=== PATIENT | female | born 1950 | race Caucasian/White ===

== ENCOUNTER 2017-04-20 16:45 | Emergency (ER) | payer MEDICARE, OTHER ==
--- NOTE | 2017-04-20 17:11 | EDM.PDOC ---
ED HPI GENERAL MEDICAL PROBLEM - General Chief Complaint: Abdominal Pain Stated Complaint: ABDOMINAL PAIN Time Seen by Provider: 04/20/17 16:53 Source of Information: Reports: Patient History Limitations: Reports: No Limitations - History of Present Illness INITIAL COMMENTS - FREE TEXT/NARRATIVE: patient is a 67-year-old female who presents to the emergency department this afternoon with complaint of lower abdominal pain. Patient states it began yesterday and had 3 small bowel movements today. Pain described as crampy and intermittent. Denies fever, nausea, vomiting, diarrhea, blood in stool, flank pain, dysuria, odorous urine, trauma, or family members with similar symptoms. Onset: Gradual Onset Date: 04/19/17 Duration: Day(s): Location: Reports: Abdomen Quality: Reports: Ache Severity: Mild Improves with: Reports: None Worsens with: Reports: None Context: Denies: Trauma Associated Symptoms: Reports: No Other Symptoms - Related Data Allergies Allergy/AdvReac Type Severity Reaction Status Date / Time No Known Allergies Allergy Verified 01/12/17 14:08 ED ROS GENERAL - Review of Systems Review Of Systems: ROS reveals no pertinent complaints other than HPI. Constitutional: Reports: No Symptoms HEENT: Reports: No Symptoms Respiratory: Reports: No Symptoms Cardiovascular: Reports: No Symptoms Endocrine: Reports: No Symptoms GI/Abdominal: Reports: Abdominal Pain : Reports: No Symptoms Musculoskeletal: Reports: No Symptoms Skin: Reports: No Symptoms Neurological: Reports: No Symptoms Psychiatric: Reports: No Symptoms Hematologic/Lymphatic: Reports: No Symptoms Immunologic: Reports: No Symptoms ED EXAM, GI/ABD - Physical Exam Exam: See Below Exam Limited By: No Limitations General Appearance: Alert, WD/WN, No Apparent Distress Nose: Normal Inspection, Normal Mucosa, No Blood Throat/Mouth: Normal Inspection, Normal Oropharynx, No Airway Compromise Head: Atraumatic, Normocephalic Neck: Normal Inspection, Supple Respiratory/Chest: No Respiratory Distress, Lungs Clear, Normal Breath Sounds, No Accessory Muscle Use, Chest Non-Tender Cardiovascular: Regular Rate, Rhythm, No Murmur GI/Abdominal Exam: Normal Bowel Sounds, Soft, No Organomegaly, No Distention, No Abnormal Bruit, No Mass, Tender (Suprapubic) Back Exam: Normal Inspection. No: CVA Tenderness (L), CVA Tenderness (R) Extremities: Normal Inspection, No Pedal Edema Neurological: Alert, Oriented, Normal Cognition Psychiatric: Normal Affect, Normal Mood Skin Exam: Warm, Dry, Intact, Normal Color Lymphatic: No Adenopathy Course - Orders/Labs/Meds Orders: Active Orders 24 hr Category Date Time Status CBC WITH AUTO DIFF [HEME] Stat Lab 04/20/17 17:01 Ordered COMPREHENSIVE METABOLIC PN,CMP [CHEM] Stat Lab 04/20/17 17:01 Ordered UA W/MICROSCOPIC [URIN] Stat Lab 04/20/17 17:01 Uncollected - Re-Assessments/Exams Free Text/Narrative Re-Assessment/Exam: 04/20/17 18:19 Patient afebrile, nontoxic appearing, vital signs stable. Abdominal cramping is intermittent and relieves with passing of gas. Patient will follow-up at clinic in 1-2 days. Return to emergency room sooner if symptoms continue or worsen. Departure - Departure Time of Disposition: 18:25 Disposition: Home, Self-Care 01 Condition: Good Clinical Impression: Abdominal pain Qualifiers: Abdominal location: unspecified location Qualified Code(s): R10.9 - Unspecified abdominal pain - Discharge Information Instructions: Abdominal Pain, Adult, [id number] Referrals: Shyla Serrano MD [Primary Care Provider] - Forms: ED Department Discharge Additional Instructions: Follow-up in clinic in next 1-2 days. Return to the emergency department sooner if symptoms continue or worsen - My Orders Last 24 Hours: My Active Orders 04/20/17 17:01 CBC WITH AUTO DIFF [HEME] Stat COMPREHENSIVE METABOLIC PN,CMP [CHEM] Stat UA W/MICROSCOPIC [URIN] Stat - Assessment/Plan Last 24 Hours: My Active Orders 04/20/17 17:01 CBC WITH AUTO DIFF [HEME] Stat COMPREHENSIVE METABOLIC PN,CMP [CHEM] Stat UA W/MICROSCOPIC [URIN] Stat Assessment:: Abdominal pain Plan: Follow-up at the clinic in 1-2 days. Return to emergency room sooner if symptoms continue or worsen.
[2017-04-20 17:54] LABS: CHLORIDE,CL 103 mmol/L (98-115); SODIUM,NA 139 mmol/L (136-145)
== END 2017-04-20 18:30 | disposition home or self-care (01) ==
LOC: KA.ED 16:45
DX: R10.30 Lower abdominal pain, unspecified (principal)
CPT/HCPCS: 36415; 80053; 81001; 85025; 99284

== ENCOUNTER 2019-06-07 10:25 | Day surgery (SDC) | payer MEDICARE, OTHER ==
[2019-06-07] MEDS ORDERED: Sodium Chloride 0.9% 10 ML Syringe FLUSH PRN (10:30)
[2019-06-07] MEDS ORDERED: Propofol 200 MG/20 ML SDV ONE ×2 (10:30→12:59)
[2019-06-07] MEDS: Lactated Ringers 1,000 ML IV SCH (12:25)
--- NOTE | 2019-06-07 12:30 | PCM.PN ---
- General Info Date of Service: 06/07/19 - Review of Systems Systems Review Comment:: 69-year-old female referred for EGD and colonoscopy. She has been having increasing symptoms of dysphasia over the last several months. He occasionally has some heartburn but does not take medication routinely for this. She has never had a previous colonoscopy and screening colonoscopy is planned as well. I discussed the proposed upper and lower endoscopy with the patient. Indications and risks are reviewed. She agrees to proceed. Recent history and physical is reviewed and no significant changes are noted. - Patient Data Vitals - Most Recent: Last Vital Signs Temp 97.1 F 06/07/19 10:39 Pulse 72 06/07/19 10:39 Resp 16 06/07/19 10:39 BP 153/88 H 06/07/19 10:39 Pulse Ox 97 06/07/19 10:39 Weight - Most Recent: 88.904 kg Med Orders - Current: Current Medications Lactated Ringer's (Ringers, Lactated) 1,000 mls @ 30 mls/hr IV ASDIRECTED ELGIN Sodium Chloride (Saline Flush) 10 ml FLUSH Q8HR PRN PRN Reason: keep vein open Discontinued Medications Propofol (Diprivan 20 Ml) Confirm Administered Dose 400 mg .ROUTE .STK-MED ONE Stop: 06/07/19 10:31 Sepsis Event Note - Focused Exam Vital Signs: Vital Signs Temp Pulse Resp BP Pulse Ox 06/07/19 10:39 97.1 F 72 16 153/88 H 97 Date Exam was Performed: 06/07/19 Time Exam was Performed: 12:28 - Problem List Review Problem List Initiated/Reviewed/Updated: Yes - My Orders Last 24 Hours: My Active Orders 06/06/19 11:51 Resuscitation Status Routine 06/07/19 10:30 Peripheral IV Care [RC] . DIRECTED Verify Patient Consent Obtain [RC] ASDIRECTED Vital Signs [RC] PER UNIT ROUTINE Lactated Ringers [Ringers, Lactated] 1,000 ml IV ASDIRECTED Sodium Chloride 0.9% [Saline Flush] 10 ml FLUSH Q8HR PRN Peripheral IV Insertion Adult [OM.PC] Routine 06/07/19 Breakfast Nothing Per Oral Diet [DIET] - Assessment Assessment:: Dysphasia Colon cancer screening - Plan Plan:: EGD and colonoscopy
[2019-06-07] MEDS ORDERED: Lidocaine 2% 100 MG/5 ML Syringe IVPUSH ONE (12:33)
[2019-06-07] MEDS ORDERED: Propofol 200 MG/20 ML SDV IV ONE (12:33)
--- NOTE | 2019-06-07 13:27 | PCM.OPNOTE ---
- General Post-Op/Procedure Note Date of Surgery/Procedure: 06/07/19 Operative Procedure(s): EGD with Biopsy and Balloon Esophageal Dilation. Colonoscopy with Polypectomy Findings: Small hiatal hernia with moderate reflux esophagitis and moderate stricture at GE junction. Mild hyperemia of the antral mucosa near the pylorus. Duodenum appears normal. 2 colon polyps and moderate sigmoid diverticulosis. Pre Op Diagnosis: Dysphasia. Colon cancer screening Post-Op Diagnosis: Hiatal hernia with reflux esophagitis and esophageal stricture. Gastritis. Colon polyps. Sigmoid diverticulosis Anesthesia Technique: [facility] [place] Primary Surgeon: Gordo Selby Pathology: Biopsies of gastric antrum Colon polyps 2 EBL in mLs: 3 Complications: None Condition: Good
--- NOTE | 2019-06-07 15:54 | OR ---
DATE OF SURGERY: 06/07/2019 SURGEON: Gordo Selby MD PREOPERATIVE DIAGNOSIS: Dysphagia and colon cancer screening. POSTOPERATIVE DIAGNOSIS: Hiatal hernia with reflux esophagitis and esophageal stricture, gastritis, colon polyps, and sigmoid diverticulosis. OPERATION PERFORMED: Esophagogastroduodenoscopy with biopsy and balloon esophageal dilation, and colonoscopy with polypectomy. INDICATIONS FOR SURGERY: This 69-year-old female has been having increasing symptoms of dysphagia over the past several months. She also has never had a colonoscopy. She is referred for diagnostic upper endoscopy and screening colonoscopy. FINDINGS: On upper endoscopy, the patient has a small hiatal hernia, but there is visible inflammation at the GE junction. There is also a [id number] benign-appearing stenosis limited to the GE junction. No visible indication of intrinsic or extrinsic mass is noted. The remainder of the esophagus appeared normal. There is mild amount of hyperemia noted in the gastric mucosa near the pylorus. No ulcers or other lesions are seen. The remainder of the stomach appears normal. The duodenum also appears normal. On colonoscopy, two polyps were noted. There was a sessile, 8 mm polyp in the proximal transverse colon. There was a semipedunculated, 7 mm polyp in the sigmoid colon 25 cm from the anal verge. There was also moderate degree of diverticulosis in the sigmoid colon, which does not appear to be acutely inflamed or otherwise complicated. The remainder of the colon appears normal. DESCRIPTION OF PROCEDURE: The patient was taken to the operating room. She was given intravenous sedation and with her in the left lateral decubitus position, the Olympus gastroscope was advanced through a mouth guard into the oral cavity. Under direct visualization, the scope was advanced through the oropharynx down into the esophagus and then down through the esophagus, stomach, and into the duodenum where examination to the third portion was performed. After examining the duodenum, the scope was withdrawn back into the stomach where full examination including retroflexed examination of the fundus was carried out. Random biopsies were taken of the area of visible inflammation in the antrum. The GE junction was carefully examined. There did appear to be a moderate narrowing at the GE junction and with the patient's symptoms, it was felt she would benefit from dilation of this stenosis. The 15-16.5-18 dilating balloon was then advanced through the gastroscope and then using successive dilation, the stenosis of the GE junction was dilated to 54-Turkish. Examination after dilation showed no sign of serious injury to the esophagus or other complication. The remainder of the esophagus was then examined as the scope was withdrawn. Attention was turned to colonoscopy. Digital rectal exam shows no rectal masses. The Olympus colonoscope was inserted into the rectum. Retroflexed examination of the rectal canal was performed. The scope was then carefully advanced under direct visualization through the entire length of the colon until the cecum was reached. Cecal acquisition was confirmed by noting the normal internal cecal anatomy including the appendiceal orifice and ileocecal valve. After carefully examining the cecum, the scope was slowly withdrawn, sequentially re-examining the colonic segments. The above-described polyps were identified during this withdrawal of the scope, and these were each removed with the cautery snare and retrieved as they were encountered. No sign of any complication was noted with polypectomy sites. After the exam had been completed, the scope was removed and the patient was taken from the operating room in satisfactory condition. ESTIMATED BLOOD LOSS: 3 mL. COMPLICATIONS: None. PROGNOSIS: Good. /[id number]/MODL
== END 2019-06-07 14:57 | disposition home or self-care (01) ==
LOC: KA.SDS 10:25
PROVIDERS: ATTEND Surgery
DX: Z12.11 Encounter for screening for malignant neoplasm of colon (principal); D12.3 Benign neoplasm of transverse colon; D12.5 Benign neoplasm of sigmoid colon; K29.50 Unspecified chronic gastritis without bleeding; K44.9 Diaphragmatic hernia without obstruction or gangrene; K21.0 Gastro-esophageal reflux disease with esophagitis; K22.2 Esophageal obstruction; E78.5 Hyperlipidemia, unspecified; E03.9 Hypothyroidism, unspecified; Z88.1 Allergy status to other antibiotic agents; Z88.2 Allergy status to sulfonamides; Z79.82 Long term (current) use of aspirin; Z79.899 Other long term (current) drug therapy; Z87.891 Personal history of nicotine dependence
CPT/HCPCS: J2001; J2704; J7120

== ENCOUNTER 2020-02-01 06:18 | Emergency (ER) | payer MEDICARE, OTHER ==
[2020-02-01] MEDS ORDERED: Ketorolac 30 MG/ML SDV IVPUSH ONE (06:34)
[2020-02-01] MEDS ORDERED: Sodium Chloride 0.9% 1,000 ML IV ONE (06:35)
[2020-02-01] MEDS ORDERED: Morphine 4 MG/ML VIAL IVPUSH ONE ×2 (06:35→07:30)
[2020-02-01] MEDS ORDERED: Ondansetron 4 MG/2 ML SDV IVPUSH ONE (06:35)
[2020-02-01] MEDS ORDERED: Sodium Chloride 0.9% 1,000 ML ONE (06:37)
[2020-02-01] MEDS ORDERED: Ondansetron 4 MG/2 ML SDV ONE (06:37)
[2020-02-01] MEDS ORDERED: Ketorolac 30 MG/ML SDV ONE (06:37)
[2020-02-01] MEDS ORDERED: Sodium Chloride 0.9% 10 ML Syringe FLUSH PRN (07:00)
[2020-02-01 07:07] LABS: ANION GAP 17.4 mmol/L (5-15); CHLORIDE,CL 108 mmol/L (98-115); SODIUM,NA 142 mmol/L (136-145)
--- NOTE | 2020-02-01 07:14 | EDM.PDOC ---
ED HPI GENERAL MEDICAL PROBLEM - General Chief Complaint: General Stated Complaint: Left flank pain Time Seen by Provider: 02/01/20 06:53 Source of Information: Reports: Patient History Limitations: Reports: No Limitations - History of Present Illness INITIAL COMMENTS - FREE TEXT/NARRATIVE: Presents emergency room for left flank pain radiates down to her left groin which started approximately 1 and half hours ago prior to arrival. Patient notes getting up to go to the bathroom to void. After she finished voiding she noticed having acute onset left flank pain. She was unable go back to sleep. The pain is 10 out of 10, sharp, radiating, continuous pain. Associated with nausea, no vomiting. Denies any true abdominal pain. History of renal calculi 35 years ago which she needed surgically taken care of. Left Flank Pain Score (Numeric/FACES): 10 - Related Data Allergies Allergy/AdvReac Type Severity Reaction Status Date / Time Sulfa (Sulfonamide Allergy Nausea and Verified 02/01/20 06:19 Antibiotics) Vomiting sulfamethoxazole Allergy Cannot Verified 02/01/20 06:19 [From Bactrim] Remember trimethoprim [From Bactrim] Allergy Cannot Verified 02/01/20 06:19 Remember Home Meds: Home Meds Levothyroxine [Synthroid] 50 mcg PO ACBREAKFAST 04/20/17 [History] Nystatin [Nystatin Crm] 15 gm TOP ASDIRECTED 05/31/19 [History] Acetaminophen/HYDROcodone [[place] 325-5 MG] 1 tab PO Q4H #10 tablet 02/01/20 [Rx] Ketorolac [Toradol] 10 mg PO TID PRN 3 Days #9 tab 02/01/20 [Rx] Metronidazole/Skin Cleanser 23 [[place] 0.75% Gel Kit] 1 applic TP BID 02/01/20 [History] Tamsulosin [Flomax] 0.4 mg PO DAILY 13 Days #13 cap.er 02/01/20 [Rx] Past Medical History HEENT History: Reports: Impaired Vision Cardiovascular History: Reports: High Cholesterol, SOB on Exertion Respiratory History: Reports: None, SOB Gastrointestinal History: Reports: Hemorrhoids Genitourinary History: Reports: Renal Calculus, UTI, Recurrent [employer] History: Reports: Fibroids, Musculoskeletal History: Reports: Back Pain, Chronic Neurological History: Reports: None Psychiatric History: Reports: Depression Endocrine/Metabolic History: Reports: None Hematologic History: Reports: None Immunologic History: Reports: None Oncologic (Cancer) History: Reports: Basal Cell Carcinoma Dermatologic History: Reports: None - Infectious Disease History Infectious Disease History: Reports: Chicken Pox, Measles, Mumps, Shingles - Past Surgical History Head Surgeries/Procedures: Reports: None HEENT Surgical History: Reports: Oral Surgery, Polypectomy Cardiovascular Surgical History: Reports: None Respiratory Surgical History: Reports: None GI Surgical History: Reports: Other (See Below) Other GI Surgeries/Procedures: Hemorrhoidectomy Female Surgical History: Reports: Section, Hysterectomy, Kidney stone extraction Endocrine Surgical History: Reports: None Neurological Surgical History: Reports: None Musculoskeletal Surgical History: Reports: None Dermatological Surgical History: Reports: Skin Biopsy Social & Family History - Tobacco Use Tobacco Use Status *Q: Former Tobacco User Used Tobacco, but Quit: Yes Month/Year Tobacco Last Used: 2008 - Caffeine Use Caffeine Use: Reports: Coffee, Soda - Recreational Drug Use Recreational Drug Use: No ED ROS GENERAL - Review of Systems Review Of Systems: Comprehensive ROS is negative, except as noted in HPI. Constitutional: Denies: Fever, Chills GI/Abdominal: Reports: Abdominal Pain, Nausea : Reports: Flank Pain. Denies: Hematuria ED EXAM, GENERAL - Physical Exam Exam: See Below Exam Limited By: No Limitations General Appearance: Alert, WD/WN, No Apparent Distress Nose: Normal Inspection Throat/Mouth: Perioral Cyanosis Head: Atraumatic Neck: Normal Inspection, Supple Respiratory/Chest: No Respiratory Distress, Lungs Clear, Normal Breath Sounds Cardiovascular: Normal Peripheral Pulses, Regular Rate, Rhythm GI/Abdominal: Normal Bowel Sounds, Soft, Non-Tender, No Organomegaly, No Distention. No: Rebound Back Exam: Normal Inspection, Full Range of Motion, CVA Tenderness (L). No: CVA Tenderness (R), Decreased Range of Motion, Muscle Spasm, Paraspinal Tenderness Extremities: Normal Range of Motion, Non-Tender, No Pedal Edema Neurological: Alert, Oriented Psychiatric: Normal Affect, Normal Mood Skin Exam: Warm, Dry, Intact. No: Diaphoretic Course - Vital Signs Last Recorded V/S: Last Vital Signs Temp 97.1 F 02/01/20 06:20 Pulse 66 02/01/20 07:02 Resp 20 02/01/20 07:02 BP 157/87 H 02/01/20 07:02 Pulse Ox 98 02/01/20 07:02 - Orders/Labs/Meds Orders: Active Orders 24 hr Category Date Time Status Peripheral IV Care [RC] . DIRECTED Care 02/01/20 07:00 Active Abdomen Pelvis wo Cont [CT] Stat Exams 02/01/20 07:07 Ordered UA RFX [place] AND CULT IF INDIC [URIN] Stat Lab 02/01/20 06:27 Ordered Sodium Chloride 0.9% [Normal Saline] 1,000 ml Med 02/01/20 06:35 Active IV .BOLUS Sodium Chloride 0.9% [Saline Flush] Med 02/01/20 07:00 Active 10 ml FLUSH Q8HR PRN Peripheral IV Insertion Adult [OM.PC] Routine Oth 02/01/20 07:00 Ordered Medication Orders Sodium Chloride (Normal Saline) 1,000 mls @ 999 mls/hr IV .BOLUS ONE Stop: 02/01/20 07:35 Last Admin: 02/01/20 06:38 Dose: 999 mls/hr Documented by: RUSTY Sodium Chloride (Saline Flush) 10 ml FLUSH Q8HR PRN PRN Reason: keep vein open Labs: Laboratory Tests 02/01/20 02/01/20 Range/Units 06:35 06:35 WBC 7.90 (5.00-10.00) 10^3/uL RBC 5.02 (3.80-5.50) 10^6/uL Hgb 15.3 (12.0-16.0) g/dL Hct 44.1 (37.0-47.0) % MCV 87.8 (82.0-92.0) fL MCH 30.5 (27.0-31.0) pg MCHC 34.7 (32.0-36.0) g/dL RDW 12.0 (11.5-14.5) % Plt Count 285 (150-400) 10^3/uL MPV 8.8 (7.4-10.4) fL Immature Gran % (Auto) 0.3 (0.0-5.0) % Neut % (Auto) 48.8 L (50.0-70.0) % Lymph % (Auto) 36.3 (20.0-40.0) % [place] % (Auto) 8.2 H (2.0-8.0) % Eos % (Auto) 5.6 H (1.0-3.0) % Baso % (Auto) 0.8 (0.0-1.0) % Neut # (Auto) 3.86 (2.50-7.00) 10^3/uL Lymph # (Auto) 2.87 (1.00-4.00) 10^3/uL [place] # (Auto) 0.65 (0.10-0.80) 10^3/uL Eos # (Auto) 0.44 H (0.10-0.30) 10^3/uL Baso # (Auto) 0.06 (0.00-0.10) 10^3/uL Immature Gran # (Auto) 0.02 (0.00-0.50) 10^3/uL Sodium 142 (136-145) mmol/L Potassium 3.9 (3.3-5.3) mmol/L Chloride 108 (98-115) mmol/L Carbon Dioxide 20.5 L (21.0-32.0) mmol/L Anion Gap 17.4 H (5-15) mmol/L BUN 20 (6-25) mg/dL Creatinine 0.73 (0.51-1.17) mg/dL Est Cr Clr Drug Dosing TNP Estimated GFR (MDRD) > 60 mL/min Glucose 144 H (75 - 99) mg/dL Calcium 8.8 (8.7-10.3) mg/dL Total Bilirubin 0.3 (0.2-1.0) mg/dL AST 20 (15-37) U/L ALT 27 (12-78) U/L Alkaline Phosphatase 90 (46-116) IU/L Total Protein 7.3 (6.4-8.2) g/dL Albumin 3.55 (3.00-4.80) g/dL Meds: Medications Generic Name Dose Route Start Last Admin Trade Name Freq PRN Reason Stop Dose Admin Sodium Chloride 1,000 mls @ 999 mls/hr 02/01/20 06:35 02/01/20 06:38 Normal Saline IV 02/01/20 07:35 999 mls/hr .BOLUS ONE Administration Sodium Chloride 10 ml 02/01/20 07:00 Saline Flush FLUSH Q8HR PRN keep vein open Discontinued Medications Generic Name Dose Route Start Last Admin Trade Name Freq PRN Reason Stop Dose Admin Sodium Chloride Confirm 02/01/20 06:37 02/01/20 06:47 Normal Saline Administered 02/01/20 06:38 Not Given Dose 1,000 mls @ as directed .ROUTE .STK-MED ONE Ketorolac Tromethamine 30 mg 02/01/20 06:34 02/01/20 06:38 Toradol IVPUSH 02/01/20 06:35 30 mg ONETIME ONE Administration Ketorolac Tromethamine Confirm 02/01/20 06:37 02/01/20 06:47 Toradol Administered 02/01/20 06:38 Not Given Dose 30 mg .ROUTE .STK-MED ONE Morphine Sulfate 4 mg 02/01/20 06:35 02/01/20 06:48 Morphine IVPUSH 02/01/20 06:36 4 mg ONETIME ONE Administration Ondansetron HCl 4 mg 02/01/20 06:35 02/01/20 06:38 Zofran IVPUSH 02/01/20 06:36 4 mg ONETIME ONE Administration Ondansetron HCl Confirm 02/01/20 06:37 02/01/20 06:47 Zofran Administered 02/01/20 06:38 Not Given Dose 4 mg .ROUTE .STK-MED ONE - Re-Assessments/Exams Free Text/Narrative Re-Assessment/Exam: 02/01/20 07:14 IV fluids & pain control. On arrival 10 out of 10 pain now is down to 0 out of 10 after the morphine and ketorolac. CT scan pending. 02/01/20 08:01 CT returned, 6 mm stone at UVJ. pain returned, repeated morphine, pain controlled. flomax ordered. 02/01/20 08:[address] Espinosa. Patient will follow-up in the clinic in a week. Patient will take Flomax daily for 2 weeks. Oral Toradol as needed with food. I did prescribe hydrocodone take as needed for severe pain. Sedation effects discussed no alcohol or driving while taking this. patient left ED with a ride. Departure - Departure Time of Disposition: 08:29 Disposition: Home, Self-Care 01 Condition: Good Clinical Impression: Renal calculus, left, Calculus of ureterovesical junction (UVJ) - Discharge Information *PRESCRIPTION DRUG MONITORING PROGRAM REVIEWED*: No *COPY OF PRESCRIPTION DRUG MONITORING REPORT IN PATIENT MITCHELL: No Instructions: Kidney Stones Forms: ED Department Discharge Additional Instructions: please schedule appt with Dr. Espinosa in the clinic for close follow up this next week. strain urine, I encourage drinking adequate hydration. please take toradol with food, do not take longer than 4 days of duration. return here for pain control anytime if symptoms persist. Sepsis Event Note (ED) - Evaluation Sepsis Screening Result: No Definite Risk - Focused Exam Vital Signs: Vital Signs Temp Pulse Resp BP Pulse Ox 02/01/20 07:02 66 20 157/87 H 98 02/01/20 06:40 66 20 124/78 98 02/01/20 06:20 97.1 F 76 24 H 182/112 H 95 - My Orders Last 24 Hours: My Active Orders 02/01/20 06:27 UA RFX [place] AND CULT IF INDIC [URIN] Stat 02/01/20 06:35 Sodium Chloride 0.9% [Normal Saline] 1,000 ml IV .BOLUS 02/01/20 07:00 Peripheral IV Care [RC] . DIRECTED Sodium Chloride 0.9% [Saline Flush] 10 ml FLUSH Q8HR PRN Peripheral IV Insertion Adult [OM.PC] Routine 02/01/20 07:07 Abdomen Pelvis wo Cont [CT] Stat - Assessment/Plan Last 24 Hours: My Active Orders 02/01/20 06:27 UA RFX [place] AND CULT IF INDIC [URIN] Stat 02/01/20 06:35 Sodium Chloride 0.9% [Normal Saline] 1,000 ml IV .BOLUS 02/01/20 07:00 Peripheral IV Care [RC] . DIRECTED Sodium Chloride 0.9% [Saline Flush] 10 ml FLUSH Q8HR PRN Peripheral IV Insertion Adult [OM.PC] Routine 02/01/20 07:07 Abdomen Pelvis wo Cont [CT] Stat
[2020-02-01] MEDS ORDERED: Morphine 4 MG/ML VIAL ONE (07:35)
--- NOTE | 2020-02-01 07:43 | CT ---
[id number] CT/CT Abdomen Pelvis WO IV Exam: CT Abdomen Pelvis WO IV Clinical Data: LEFT FLANK PAIN COMPARISON: NO PREVIOUS SIMILAR EXAM IS AVAILABLE FINDINGS: A 6 mm calcification is seen at the left UVJ on image 123, series 2 There is mild left-sided hydroureteronephrosis. A 5 mm hyperdensity is seen in the cortex of the midpole of the right kidney posteriorly on image 52, series 2. A calcification is seen in the ligamentum venosum of the liver on image 22, series 2. This is likely a phlebolith There is no pelvic mass or adenopathy The uterus and ovaries are not seen There is no evidence of appendicitis or diverticulitis There is diverticulosis The gallbladder is not distended IMPRESSION: 6 MM CALCULUS LEFT UVJ MILD LEFT-SIDED HYDRONEPHROSIS RIGHT MIDPOLE RENAL CORTICAL HYPERDENSITY PERHAPS HYPERDENSE CYST CONSIDER FOLLOW-UP ULTRASOUND OR CONTRAST CT Sahil Daugherty MD 02/01/20 0742 Thank you for allowing us to participate in the care of your patient.
[2020-02-01] MEDS ORDERED: Tamsulosin 0.4 MG Cap.ER PO ONE (07:47)
== END 2020-02-01 08:45 | disposition home or self-care (01) ==
LOC: KA.ED 06:18
DX: N13.2 Hydronephrosis with renal and ureteral calculous obstruction (principal); Z88.2 Allergy status to sulfonamides; Z88.1 Allergy status to other antibiotic agents; Z87.891 Personal history of nicotine dependence
CPT/HCPCS: 74176; 80053; 85025; 96374; 96375; 96376; 99284; A9270; J1885; J2270; J2405; J7030

== ENCOUNTER 2021-01-19 02:11 | Inpatient (IN) | payer MEDICARE, OTHER ==
[2021-01-19] MEDS ORDERED: Sodium Chloride 0.9% 10 ML Syringe FLUSH PRN (02:30)
--- NOTE | 2021-01-19 02:41 | EDM.PDOC ---
ED HPI GENERAL MEDICAL PROBLEM - General Chief Complaint: General Stated Complaint: chest heaviness Time Seen by Provider: 01/19/21 02:39 Source of Information: Reports: Patient History Limitations: Reports: No Limitations - History of Present Illness INITIAL COMMENTS - FREE TEXT/NARRATIVE: Susan, 70-year-old female, awoke at roughly 2400 hrs. or shortly after with what she felt rapid heart rate. She had pressure in her chest at that time stating "it is not like an elephant on my chest, but more like a cow" Denies any recent activity or intake that would stimulate her heart caffeine with coffee in the morning and did go out for supper this evening with 2 drinks. States she had a cold over the past couple weeks but slowly resolving, but denies any sequela from that. Denies any change in bowel or bladder, no claudication or edema issues. Both her and her speak of episodes in the past or Susan complained of what she felt was a rapid heart rate. These were short-lived and resolved spontaneously and has never sought treatment for that. She is vaccinated with Plethora against COVID-19 and has not had any symptoms or concerns,Other than her coldThis past week. She underwent rapid testing the afternoon of the first within 12 hours of her admission to the emergency department having a negative COVID-19 test at that time. Onset: Today, Sudden Onset Date: 01/19/21 Onset Time: 00:05 Duration: Minutes: Location: Reports: Chest Quality: Reports: Pressure Severity: Moderate Improves with: Reports: None Worsens with: Reports: None - Related Data Allergies Allergy/AdvReac Type Severity Reaction Status Date / Time Sulfa (Sulfonamide Allergy Nausea and Verified 02/01/20 06:19 Antibiotics) Vomiting sulfamethoxazole Allergy Cannot Verified 02/01/20 06:19 [From Bactrim] Remember trimethoprim [From Bactrim] Allergy Cannot Verified 02/01/20 06:19 Remember Home Meds: Home Meds Levothyroxine [Synthroid] 50 mcg PO ACBREAKFAST 04/20/17 [History] Nystatin [Nystatin Crm] 15 gm TOP ASDIRECTED PRN 05/31/19 [History] Metronidazole/Skin Cleanser 23 [Rosadan 0.75% Gel Kit] 1 applic TP BID PRN 02/01/20 [History] Psyllium Husk (With Sugar) [Metamucil Powder] 1 dose PO DAILY 01/19/21 [History] Past Medical History HEENT History: Reports: Impaired Vision Cardiovascular History: Reports: High Cholesterol, SOB on Exertion Respiratory History: Reports: None, SOB Gastrointestinal History: Reports: Hemorrhoids Genitourinary History: Reports: Renal Calculus, UTI, Recurrent MEDICAL ASSISTANT PRN History: Reports: Fibroids, Musculoskeletal History: Reports: Back Pain, Chronic Neurological History: Reports: None Psychiatric History: Reports: Depression Endocrine/Metabolic History: Reports: None Hematologic History: Reports: None Immunologic History: Reports: None Oncologic (Cancer) History: Reports: Basal Cell Carcinoma Dermatologic History: Reports: None - Infectious Disease History Infectious Disease History: Reports: Chicken Pox, Measles, Mumps, Shingles - Past Surgical History Head Surgeries/Procedures: Reports: None HEENT Surgical History: Reports: Oral Surgery, Polypectomy Cardiovascular Surgical History: Reports: None Respiratory Surgical History: Reports: None GI Surgical History: Reports: Other (See Below) Other GI Surgeries/Procedures: Hemorrhoidectomy Female Surgical History: Reports: Section, Hysterectomy, Kidney stone extraction Endocrine Surgical History: Reports: None Neurological Surgical History: Reports: None Musculoskeletal Surgical History: Reports: None Dermatological Surgical History: Reports: Skin Biopsy Social & Family History - Family History Family Medical History: No Pertinent Family History - Caffeine Use Caffeine Use: Reports: Coffee, Soda ED ROS GENERAL - Review of Systems Review Of Systems: Comprehensive ROS is negative, except as noted in HPI. ED EXAM, GENERAL - Physical Exam Exam: See Below Free Text/Narrative:: Alert, oriented in no acute distress with no cyanosis nor pallor noted. PERRLA no icterus no injection. HEENT is negative to discharge or deformity. She has pink moist mucous membranes with no erythema. Neck is soft supple no lymphadenopathy no rigidity, no carotid bruits auscultated. Thorax is clear throughout with no wheezes or crackles. Cardiac is S1-S2 grade 1 systolic murmur best heard at the base nonradiating. Abdomen is soft rotund bowel sounds are present there is no hepatosplenomegaly appreciated and no tenderness. +1 edema to the lower extremities with warm dry skin pulses present no deficits noted to motion. She denies true pain stating it is a pressure sensation. Bedside monitor as well as EKG show a conduction aberrancy consistent with ventricular tachycardia with a rate as high as 130 and coming down into the low 100s. Radial pulse did not correlate but was present and full at all times. #1 Interpretation EKG Date: 01/19/21 Time: 02:24 Rhythm: Other Rate (Beats/Min): 152 Plummer: LAD-Left Plummer Deviation P-Wave: Absent QRS: Wide ST-T: Normal QT: Prolonged Comparison: NA - No Prior EKG #2 Interpretation EKG Date: 01/19/21 Time: 03:09 Rhythm: A-Fib Rate (Beats/Min): 94 Plummer: LAD-Left Plummer Deviation P-Wave: Absent QRS: Wide ST-T: Normal Comparison: Change From Previous EKG (After 150mg amiodorone) #3 Interpretation EKG Date: 01/19/21 Time: 04:17 Rhythm: A-Fib Rate (Beats/Min): 113 Plummer: LAD-Left Plummer Deviation P-Wave: Absent QRS: Wide ST-T: Normal Comparison: Change From Previous EKG #4 Interpretation EKG Date: 01/19/21 Time: 05:31 Rhythm: NSR Rate (Beats/Min): 87 Plummer: LAD-Left Plummer Deviation P-Wave: Present QRS: LBBB ST-T: Normal QT: Normal Comparison: Change From Previous EKG (converted to sinus) Course - Orders/Labs/Meds Orders: Active Orders 24 hr Category Date Time Status Patient Status [ADT] Routine ADT 01/19/21 05:16 Ordered Bedrest Bathroom Privileges [RC] ASDIRECTED Care 01/19/21 05:21 Ordered Cardiac Monitoring [RC] . DIRECTED Care 01/19/21 05:16 Ordered EKG Documentation Completion [RC] ASDIRECTED Care 01/19/21 02:20 Active EKG Documentation Completion [RC] ASDIRECTED Care 01/19/21 03:09 Active EKG Documentation Completion [RC] ASDIRECTED Care 01/19/21 04:10 Active EKG Documentation Completion [RC] ASDIRECTED Care 01/19/21 05:15 Ordered Height and Weight [RC] UPON Care 01/19/21 05:21 Ordered Intake and Output [RC] QSHIFT Care 01/19/21 05:21 Ordered Oxygen Therapy [RC] PRN Care 01/19/21 05:21 Ordered Peripheral IV Care [RC] . DIRECTED Care 01/19/21 02:30 Active VTE/DVT Education [RC] PER UNIT ROUTINE Care 01/19/21 05:21 Ordered Vital Signs [RC] Q4H Care 01/19/21 05:21 Ordered 2 Gram Sodium Diet [DIET] Diet 01/19/21 Breakfast Ordered Chest 1V Frontal [CR] Stat Exams 01/19/21 03:24 Taken B-TYPE NATRIURETIC PEPTIDE,BNP [CHEM] Stat Lab 01/19/21 05:11 Ordered BMP [BASIC METABOLIC PANEL,BMP] [CHEM] Stat Lab 01/19/21 05:11 Ordered CBC WITH AUTO DIFF [HEME] DAILY Lab 01/19/21 05:11 Ordered MAGNESIUM [CHEM] AM Lab 01/20/21 05:11 Ordered TROPONIN I HIGH SENSITIVITY [CHEM] AM Lab 01/19/21 05:11 Ordered Acetaminophen [TylenoL] Med 01/19/21 05:21 Ordered 650 mg PO Q4H PRN Diltiazem 125 mg Med 01/19/21 05:00 Active Sodium Chloride 0.9% [Normal Saline] 100 ml IV TITRATE Ondansetron [Zofran ODT] Med 01/19/21 05:21 Ordered 4 mg PO Q4H PRN Sodium Chloride 0.9% [Normal Saline] 1,000 ml Med 01/19/21 03:15 Active IV ASDIRECTED Sodium Chloride 0.9% [Saline Flush] Med 01/19/21 02:30 Active 10 ml FLUSH Q8HR PRN Peripheral IV Insertion Adult [OM.PC] Routine Oth 01/19/21 02:30 Ordered Code Status [Resuscitation Status] Stat Resus Stat 01/19/21 05:18 Ordered EKG 12 Lead [EK] Stat Ther 01/19/21 02:20 Ordered EKG 12 Lead [EK] Stat Ther 01/19/21 03:09 Ordered EKG 12 Lead [EK] Stat Ther 01/19/21 04:10 Ordered EKG 12 Lead [EK] Stat Ther 01/19/21 05:15 Ordered Medication Orders Acetaminophen (Acetaminophen 325 Mg Tab) 650 mg PO Q4H PRN PRN Reason: Pain (Mild 1-3)/fever Sodium Chloride (Normal Saline) 1,000 mls @ 75 mls/hr IV ASDIRECTED ELGIN Last Admin: 01/19/21 03:13 Dose: 75 mls/hr Documented by: NIKHIL Diltiazem HCl 125 mg/ Sodium (Chloride) 125 mls @ 5 mls/hr IV TITRATE ELGIN Last Admin: 01/19/21 05:17 Dose: 5 mg/hr, 5 mls/hr Documented by: Ondansetron HCl (Ondansetron 4 Mg Tab.Dis) 4 mg PO Q4H PRN PRN Reason: nausea, able to take PO Sodium Chloride (Sodium Chloride 0.9% 10 Ml Syringe) 10 ml FLUSH Q8HR PRN PRN Reason: keep vein open Last Admin: 01/19/21 02:40 Dose: 10 ml Documented by: NIKHIL Labs: Laboratory Tests 01/19/21 01/19/21 01/19/21 Range/Units 02:40 02:40 02:40 WBC 12.85 H (5.00-10.00) 10^3/uL RBC 5.41 (3.80-5.50) 10^6/uL Hgb 16.5 H (12.0-16.0) g/dL Hct 47.3 H (37.0-47.0) % MCV 87.4 (82.0-92.0) fL MCH 30.5 (27.0-31.0) pg MCHC 34.9 (32.0-36.0) g/dL RDW 12.3 (11.5-14.5) % Plt Count 288 (150-400) 10^3/uL MPV 8.8 (7.4-10.4) fL Immature Gran % (Auto) 0.3 (0.0-5.0) % Neut % (Auto) 54.8 (50.0-70.0) % Lymph % (Auto) 31.3 (20.0-40.0) % [place] % (Auto) 9.0 H (2.0-8.0) % Eos % (Auto) 4.0 H (1.0-3.0) % Baso % (Auto) 0.6 (0.0-1.0) % Neut # (Auto) 7.04 H (2.50-7.00) 10^3/uL Lymph # (Auto) 4.02 H (1.00-4.00) 10^3/uL [place] # (Auto) 1.16 H (0.10-0.80) 10^3/uL Eos # (Auto) 0.51 H (0.10-0.30) 10^3/uL Baso # (Auto) 0.08 (0.00-0.10) 10^3/uL Immature Gran # (Auto) 0.04 (0.00-0.50) 10^3/uL D-Dimer, Quantitative 319 (<400) ng/mL Sodium 139 (136-145) mmol/L Potassium 3.7 (3.5-5.1) mmol/L Chloride 101 (98-107) mmol/L Carbon Dioxide 24.4 (21.0-32.0) mmol/L Anion Gap 17.3 H (5-15) mmol/L BUN 23 H (7-18) mg/dL Creatinine 0.73 (0.51-1.17) mg/dL Est Cr Clr Drug Dosing TNP Estimated GFR (MDRD) > 60 mL/min Glucose 144 H (70-140) mg/dL Calcium 10.0 (8.7-10.3) mg/dL Total Bilirubin 0.4 (0.2-1.0) mg/dL AST 29 (15-37) U/L ALT 40 (14-63) U/L Alkaline Phosphatase 99 (46-116) U/L Troponin I High Sens 17.700 (0-51.000) pg/mL Total Protein 8.1 (6.4-8.2) g/dL Albumin 3.78 (3.40-5.00) g/dL TSH, Ultra Sensitive (0.340-4.820) uIU/mL 01/19/21 Range/Units 03:02 WBC (5.00-10.00) 10^3/uL RBC (3.80-5.50) 10^6/uL Hgb (12.0-16.0) g/dL Hct (37.0-47.0) % MCV (82.0-92.0) fL MCH (27.0-31.0) pg MCHC (32.0-36.0) g/dL RDW (11.5-14.5) % Plt Count (150-400) 10^3/uL MPV (7.4-10.4) fL Immature Gran % (Auto) (0.0-5.0) % Neut % (Auto) (50.0-70.0) % Lymph % (Auto) (20.0-40.0) % [place] % (Auto) (2.0-8.0) % Eos % (Auto) (1.0-3.0) % Baso % (Auto) (0.0-1.0) % Neut # (Auto) (2.50-7.00) 10^3/uL Lymph # (Auto) (1.00-4.00) 10^3/uL [place] # (Auto) (0.10-0.80) 10^3/uL Eos # (Auto) (0.10-0.30) 10^3/uL Baso # (Auto) (0.00-0.10) 10^3/uL Immature Gran # (Auto) (0.00-0.50) 10^3/uL D-Dimer, Quantitative (<400) ng/mL Sodium (136-145) mmol/L Potassium (3.5-5.1) mmol/L Chloride (98-107) mmol/L Carbon Dioxide (21.0-32.0) mmol/L Anion Gap (5-15) mmol/L BUN (7-18) mg/dL Creatinine (0.51-1.17) mg/dL Est Cr Clr Drug Dosing Estimated GFR (MDRD) mL/min Glucose (70-140) mg/dL Calcium (8.7-10.3) mg/dL Total Bilirubin (0.2-1.0) mg/dL AST (15-37) U/L ALT (14-63) U/L Alkaline Phosphatase (46-116) U/L Troponin I High Sens (0-51.000) pg/mL Total Protein (6.4-8.2) g/dL Albumin (3.40-5.00) g/dL TSH, Ultra Sensitive 8.258 H (0.340-4.820) uIU/mL Meds: Medications Generic Name Dose Route Start Last Admin Trade Name Freq PRN Reason Stop Dose Admin Acetaminophen 650 mg 01/19/21 05:21 Acetaminophen 325 Mg Tab PO Q4H PRN Pain (Mild 1-3)/fever Sodium Chloride 1,000 mls @ 75 mls/hr 01/19/21 03:15 01/19/21 03:13 Normal Saline IV 75 mls/hr ASDIRECTED ELGIN Administration Diltiazem HCl 125 mg/ Sodium 125 mls @ 5 mls/hr 01/19/21 05:00 01/19/21 05:17 Chloride IV 5 mg/hr TITRATE ELGIN 5 mls/hr Administration 5 MG/HR Ondansetron HCl 4 mg 01/19/21 05:21 Ondansetron 4 Mg Tab.Dis PO Q4H PRN nausea, able to take PO Sodium Chloride 10 ml 01/19/21 02:30 01/19/21 02:40 Sodium Chloride 0.9% 10 Ml Syringe FLUSH 10 ml Q8HR PRN Administration keep vein open Discontinued Medications Generic Name Dose Route Start Last Admin Trade Name Freq PRN Reason Stop Dose Admin Amiodarone HCl/Dextrose 150 mg 01/19/21 02:50 01/19/21 02:58 Amiodarone/Dextrose,Iso-Osmotic 150 Mg/100 Ml Premix Bag IV 01/19/21 02:51 150 mg .BOLUS ONE Administration Protocol Diltiazem HCl 20 mg 01/19/21 04:34 01/19/21 04:41 Diltiazem 25 Mg/5 Ml Sdv IVPUSH 01/19/21 04:35 20 mg ONETIME ONE Administration Diltiazem HCl 25 mg 01/19/21 04:57 01/19/21 05:18 Diltiazem 25 Mg/5 Ml Sdv IVPUSH 01/19/21 04:58 Not Given ONETIME ONE Sodium Chloride Confirm 01/19/21 03:10 01/19/21 03:15 Normal Saline Administered 01/19/21 03:11 Not Given Dose 1,000 mls @ as directed .ROUTE .STK-MED ONE Amiodarone HCl/Dextrose 360 mg 200 mls @ 33.3 mls/hr 01/19/21 03:10 01/19/21 03:13 / Premix IV 33.3 mls/hr ASDIRECTED ELGIN Administration Protocol Sodium Chloride Confirm 01/19/21 05:07 01/19/21 05:23 Normal Saline Administered 01/19/21 05:08 Not Given Dose 100 mls @ as directed .ROUTE .STK-MED ONE Diltiazem HCl 125 mg/ Sodium 125 mls @ 5 mls/hr 01/19/21 05:07 Chloride IV ASDIRECTED ELGIN - Re-Assessments/Exams Free Text/Narrative Re-Assessment/Exam: 01/19/21 04:05 Ventricular tachycardia with no sequela at this time remaining alert oriented with good oxygen saturation. Amiodarone 150 mg Amiodarone 150 mg over 10 minutes which slowed the heart rate down into the mid 90s which slowed the heart rate down into the mid 90s with occasional P waves so occurring and trigeminy quad Gi and trigeminy quad Gi Rhythm. She states she is feeling much better as the rate is now more controlled although still remaining what appears to be V. tach. Periods of time through the assessment show what could be an attempt at conversion with P waves noted, and then followed by what would be atrial fibrillation. Free Text/Narrative Re-Assessment/Exam: 01/19/21 04:3Spoke with Dr. Espinosa at 04 35 regarding the admission and DC the amiodarone and bolus with 20 mg Cardizem and follow routine atrial fibrillation protocol. Agrees to acute admission and will follow in the a.m. 01/19/21 05:11 20 mg Cardizem was given with no significant hypotension documented, She Remained in atrial fibrillation 90's to 100's at which time an additional 25 mg was ordered to be followed by Cardizem drip. At the time nursing staff return to the department with medication she had converted to a sinus rhythm rate of eighty-eight with the 25 mg IV push counseled in a Cardizem drip 5 mg/h to be initiated at this time. She will be taken to the floor and placed in her room after the drip is initiated and have lab work done this morning on a.m. rounds prior to Dr. Espinosa's rounding. Departure - Departure Time of Disposition: 05:24 Disposition: Admitted As Inpatient 66 Condition: Good Clinical Impression: A-fib, Hypothyroid - Discharge Information *PRESCRIPTION DRUG MONITORING PROGRAM REVIEWED*: Not Applicable *COPY OF PRESCRIPTION DRUG MONITORING REPORT IN PATIENT MITCHELL: Not Applicable Referrals: Shyla Serrano MD [Primary Care Provider] - Forms: ED Department Discharge Additional Instructions: Discussed with Dr. Espinosa agrees to admission for acute status atrial fibrillation new onset - Problem List & Annotations (1) Hypothyroid SNOMED Code(s): 21076475 Code(s): E03.9 - HYPOTHYROIDISM, UNSPECIFIED Status: Chronic Priority: Medium Qualifiers: Hypothyroidism type: unspecified Qualified Code(s): E03.9 - Hypothyroidism, unspecified (2) A-fib SNOMED Code(s): 20447556 Code(s): I48.91 - UNSPECIFIED ATRIAL FIBRILLATION Status: Acute Priority: High Qualifiers: Atrial fibrillation type: paroxysmal Qualified Code(s): I48.0 - Paroxysmal atrial fibrillation - Problem List Review Problem List Initiated/Reviewed/Updated: Yes - My Orders Last 24 Hours: My Active Orders 01/19/21 02:20 EKG Documentation Completion [RC] ASDIRECTED EKG 12 Lead [EK] Stat 01/19/21 02:30 Peripheral IV Care [RC] . DIRECTED Sodium Chloride 0.9% [Saline Flush] 10 ml FLUSH Q8HR PRN Peripheral IV Insertion Adult [OM.PC] Routine 01/19/21 03:09 EKG Documentation Completion [RC] ASDIRECTED EKG 12 Lead [EK] Stat 01/19/21 03:15 Sodium Chloride 0.9% [Normal Saline] 1,000 ml IV ASDIRECTED 01/19/21 03:24 Chest 1V Frontal [CR] Stat 01/19/21 04:10 EKG Documentation Completion [RC] ASDIRECTED EKG 12 Lead [EK] Stat 01/19/21 05:00 Diltiazem 125 mg Sodium Chloride 0.9% [Normal Saline] 100 ml IV TITRATE 01/19/21 05:11 B-TYPE NATRIURETIC PEPTIDE,BNP [CHEM] Stat BMP [BASIC METABOLIC PANEL,BMP] [CHEM] Stat CBC WITH AUTO DIFF [HEME] DAILY TROPONIN I HIGH SENSITIVITY [CHEM] AM 01/19/21 05:15 EKG Documentation Completion [RC] ASDIRECTED EKG 12 Lead [EK] Stat 01/19/21 05:16 Patient Status [ADT] Routine Cardiac Monitoring [RC] . DIRECTED 01/19/21 05:18 Code Status [Resuscitation Status] Stat 01/19/21 05:21 Bedrest Bathroom Privileges [RC] ASDIRECTED Height and Weight [RC] UPON Intake and Output [RC] QSHIFT Oxygen Therapy [RC] PRN VTE/DVT Education [RC] PER UNIT ROUTINE Vital Signs [RC] Q4H Acetaminophen [TylenoL] 650 mg PO Q4H PRN Ondansetron [Zofran ODT] 4 mg PO Q4H PRN 01/19/21 Breakfast 2 Gram Sodium Diet [DIET] 01/20/21 05:11 MAGNESIUM [CHEM] AM - Assessment/Plan Admission H&P: Please use this note as an admission H&P Last 24 Hours: My Active Orders 01/19/21 02:20 EKG Documentation Completion [RC] ASDIRECTED EKG 12 Lead [EK] Stat 01/19/21 02:30 Peripheral IV Care [RC] . DIRECTED Sodium Chloride 0.9% [Saline Flush] 10 ml FLUSH Q8HR PRN Peripheral IV Insertion Adult [OM.PC] Routine 01/19/21 03:09 EKG Documentation Completion [RC] ASDIRECTED EKG 12 Lead [EK] Stat 01/19/21 03:15 Sodium Chloride 0.9% [Normal Saline] 1,000 ml IV ASDIRECTED 01/19/21 03:24 Chest 1V Frontal [CR] Stat 01/19/21 04:10 EKG Documentation Completion [RC] ASDIRECTED EKG 12 Lead [EK] Stat 01/19/21 05:00 Diltiazem 125 mg Sodium Chloride 0.9% [Normal Saline] 100 ml IV TITRATE 01/19/21 05:11 B-TYPE NATRIURETIC PEPTIDE,BNP [CHEM] Stat BMP [BASIC METABOLIC PANEL,BMP] [CHEM] Stat CBC WITH AUTO DIFF [HEME] DAILY TROPONIN I HIGH SENSITIVITY [CHEM] AM 01/19/21 05:15 EKG Documentation Completion [RC] ASDIRECTED EKG 12 Lead [EK] Stat 01/19/21 05:16 Patient Status [ADT] Routine Cardiac Monitoring [RC] . DIRECTED 01/19/21 05:18 Code Status [Resuscitation Status] Stat 01/19/21 05:21 Bedrest Bathroom Privileges [RC] ASDIRECTED Height and Weight [RC] UPON Intake and Output [RC] QSHIFT Oxygen Therapy [RC] PRN VTE/DVT Education [RC] PER UNIT ROUTINE Vital Signs [RC] Q4H Acetaminophen [TylenoL] 650 mg PO Q4H PRN Ondansetron [Zofran ODT] 4 mg PO Q4H PRN 01/19/21 Breakfast 2 Gram Sodium Diet [DIET] 01/20/21 05:11 MAGNESIUM [CHEM] AM Plan: Discussed with Dr. Espinosa agrees to admission for acute status atrial fibrillation new onset
[2021-01-19] MEDS ORDERED: Amiodarone/Dextrose,Iso-Osmotic 150 MG/100 ML Premix Bag IV ONE (02:50)
[2021-01-19] MEDS ORDERED: Sodium Chloride 0.9% 1,000 ML ONE (03:10)
[2021-01-19] MEDS ORDERED: Amiodarone In Dextrose,Iso-Osm 360 MG in Premix Bag 1 BAG IV SCH ×2 (03:10)
[2021-01-19] MEDS ORDERED: Sodium Chloride 0.9% 1,000 ML IV SCH (03:15)
[2021-01-19 03:32] LABS: ANION GAP 17.3 mmol/L (5-15); CHLORIDE,CL 101 mmol/L (98-107); SODIUM,NA 139 mmol/L (136-145)
[2021-01-19] MEDS ORDERED: Diltiazem 25 MG/5 ML SDV IVPUSH ONE ×2 (04:34→04:57)
[2021-01-19] MEDS ORDERED: Diltiazem 125 MG in Sodium Chloride 0.9% 100 ML IV SCH ×2 (05:00→05:07)
[2021-01-19] MEDS ORDERED: Sodium Chloride 0.9% 100 ML ONE (05:07)
[2021-01-19] MEDS ORDERED: Ondansetron 4 MG Tab.DIS PO PRN (05:21)
[2021-01-19] MEDS ORDERED: Acetaminophen 325 MG Tab PO PRN (05:21)
[2021-01-19 08:19] LABS: ANION GAP 14.2 mmol/L (5-15); CHLORIDE,CL 104 mmol/L (98-107); SODIUM,NA 139 mmol/L (136-145)
--- NOTE | 2021-01-19 09:26 | CR ---
[id number] RAD/RAD Chest Portable EXAM: PORTABLE CHEST RADIOGRAPH. INDICATION: TACHYCARDIA CHEST PAIN COMPARISON: CORRELATION IS MADE WITH AUGUST 24, 2010 FINDINGS: The lungs are clear. The cardiomediastinal contour is normal. The regional bones and soft tissues are unremarkable. There is no pneumothorax. IMPRESSION: NO ACUTE PROCESS. Sahil Daugherty MD 01/19/21 [id number] Thank you for allowing us to participate in the care of your patient.
--- NOTE | 2021-01-19 11:16 | PCM.DCSUM1 ---
Discharge Summary - Hospital Course Free Text/Narrative:: Admission Date: 01/19/2021 Discharge Date: 01/19/2021 Admission Diagnosis: Atrial fibrillation with RVR Discharge Diagnosis: Atrial Fibrillation with RVR, converted to NSR after starting diltiazem drip - Start Diltiazem CD 120 mg PO daily (NEW) sent through clinic chart - Start ASA 325 mg PO daily (NEW) can purchase OTC Secondary Diagnoses: Hypothyroidism - Continue levothyroxine 50 mcg PO daily, will need dose adjustment, will follow-up in the clinic for this CODE STATUS: Full Code Lalita was admitted through the ER on 01/19 with chest pressure and a racing heart rate that started at midnight and was still present after a few hours. She has had similar episodes in the past but they always stop on their own and so she has not been worked-up for this. She states with this racing heart she had chest pressure and mild SOB. EKG showed SVT with a rate in the 130-150's. She was started on amiodarone which slowed her heart rate to the 90's and then showed an underlying a-fib with a rate that would be in the low 100'. She was given a diltiazem bolus and started on a drip and converted to NSR. She states she is feeling a lot better right now but is tired as she did not sleep last night. She would be OK going home today on Diltiazem extended release 120 mg PO daily getting a dose in the hospital before she leaves and her drip has been off for at least one hour. Troponin was negative x 2. TSH was elevated and she will need to follow-up in the clinic within in the week to discuss this and consider starting levothyroxine. Will add T4 to her labs from today. [id number]- VASc score is a 2 for her age and female gender. As she is in NSR and has no prior documented a-fib will start ASA 325 mg PO daily but if she converts or has more episodes of a-fib will consider Eliquis 5 mg PO BID. Diagnosis: Stroke: No Modified Eulogio Scale: No Symptoms at All Modified Sumner Scale Score: 0 - Discharge Data Discharge Date: 01/19/21 Discharge Disposition: Home, Self-Care 01 Condition: Good - Referral to Home Health Primary Care Physician: Shyla Serrano MD - Patient Instructions Diet: Regular Diet as Tolerated Activity: Rest and Relax Today - Discharge Plan *PRESCRIPTION DRUG MONITORING PROGRAM REVIEWED*: Not Applicable *COPY OF PRESCRIPTION DRUG MONITORING REPORT IN PATIENT [place]: Not Applicable Home Medications: Home Meds Levothyroxine [Synthroid] 50 mcg PO ACBREAKFAST 04/20/17 [History] Nystatin [Nystatin Crm] 15 gm TOP ASDIRECTED PRN 05/31/19 [History] Metronidazole/Skin Cleanser 23 [[place] 0.75% Gel Kit] 1 applic TP BID PRN 02/01/20 [History] Psyllium Husk (With Sugar) [Metamucil Powder] 1 dose PO DAILY 01/19/21 [History] Forms: ED Department Discharge Referrals: Shyla Serrano MD [Primary Care Provider] - - Discharge Summary/Plan Comment DC Time >30 min.: No Total # of Minutes for Discharge Time: 27 minutes - General Info Date of Service: 01/19/21 Admission Dx/Problem (Free Text: Atrial fibrillation with RVR - Patient Data Vitals - Most Recent: Last Vital Signs Temp 97.0 F 01/19/21 05:21 Pulse 76 01/19/21 07:00 Resp 22 H 01/19/21 05:30 BP 139/82 01/19/21 07:00 Pulse Ox 95 01/19/21 05:30 Weight - Most Recent: 196 lb I&O - Last 24 hours: Intake & Output 01/18/21 01/19/21 01/19/21 22:59 06:59 14:59 Intake Total 38 Output Total 500 Balance -462 Lab Results - Last 24 hrs: Laboratory Results - last 24 hr 01/19/21 01/19/21 01/19/21 Range/Units 02:40 02:40 02:40 WBC 12.85 H (5.00-10.00) 10^3/uL RBC 5.41 (3.80-5.50) 10^6/uL Hgb 16.5 H (12.0-16.0) g/dL Hct 47.3 H (37.0-47.0) % MCV 87.4 (82.0-92.0) fL MCH 30.5 (27.0-31.0) pg MCHC 34.9 (32.0-36.0) g/dL RDW 12.3 (11.5-14.5) % Plt Count 288 (150-400) 10^3/uL MPV 8.8 (7.4-10.4) fL Immature Gran % (Auto) 0.3 (0.0-5.0) % Neut % (Auto) 54.8 (50.0-70.0) % Lymph % (Auto) 31.3 (20.0-40.0) % Reeves % (Auto) 9.0 H (2.0-8.0) % Eos % (Auto) 4.0 H (1.0-3.0) % Baso % (Auto) 0.6 (0.0-1.0) % Neut # (Auto) 7.04 H (2.50-7.00) 10^3/uL Lymph # (Auto) 4.02 H (1.00-4.00) 10^3/uL Reeves # (Auto) 1.16 H (0.10-0.80) 10^3/uL Eos # (Auto) 0.51 H (0.10-0.30) 10^3/uL Baso # (Auto) 0.08 (0.00-0.10) 10^3/uL Immature Gran # (Auto) 0.04 (0.00-0.50) 10^3/uL D-Dimer, Quantitative 319 (<400) ng/mL Sodium 139 (136-145) mmol/L Potassium 3.7 (3.5-5.1) mmol/L Chloride 101 (98-107) mmol/L Carbon Dioxide 24.4 (21.0-32.0) mmol/L Anion Gap 17.3 H (5-15) mmol/L BUN 23 H (7-18) mg/dL Creatinine 0.73 (0.51-1.17) mg/dL Est Cr Clr Drug Dosing TNP Estimated GFR (MDRD) > 60 mL/min Glucose 144 H (70-140) mg/dL Calcium 10.0 (8.7-10.3) mg/dL Total Bilirubin 0.4 (0.2-1.0) mg/dL AST 29 (15-37) U/L ALT 40 (14-63) U/L Alkaline Phosphatase 99 (46-116) U/L Troponin I High Sens 17.700 (0-51.000) pg/mL B-Natriuretic Peptide (0-100) pg/mL Total Protein 8.1 (6.4-8.2) g/dL Albumin 3.78 (3.40-5.00) g/dL TSH, Ultra Sensitive (0.340-4.820) uIU/mL 01/19/21 01/19/21 01/19/21 Range/Units 03:02 07:05 07:05 WBC 9.95 (5.00-10.00) 10^3/uL RBC 5.01 (3.80-5.50) 10^6/uL Hgb 15.3 (12.0-16.0) g/dL Hct 43.9 (37.0-47.0) % MCV 87.6 (82.0-92.0) fL MCH 30.5 (27.0-31.0) pg MCHC 34.9 (32.0-36.0) g/dL RDW 12.3 (11.5-14.5) % Plt Count 274 (150-400) 10^3/uL MPV 8.7 (7.4-10.4) fL Immature Gran % (Auto) 0.4 (0.0-5.0) % Neut % (Auto) 58.4 (50.0-70.0) % Lymph % (Auto) 28.0 (20.0-40.0) % Reeves % (Auto) 8.9 H (2.0-8.0) % Eos % (Auto) 3.7 H (1.0-3.0) % Baso % (Auto) 0.6 (0.0-1.0) % Neut # (Auto) 5.80 (2.50-7.00) 10^3/uL Lymph # (Auto) 2.79 (1.00-4.00) 10^3/uL Reeves # (Auto) 0.89 H (0.10-0.80) 10^3/uL Eos # (Auto) 0.37 H (0.10-0.30) 10^3/uL Baso # (Auto) 0.06 (0.00-0.10) 10^3/uL Immature Gran # (Auto) 0.04 (0.00-0.50) 10^3/uL D-Dimer, Quantitative (<400) ng/mL Sodium (136-145) mmol/L Potassium (3.5-5.1) mmol/L Chloride (98-107) mmol/L Carbon Dioxide (21.0-32.0) mmol/L Anion Gap (5-15) mmol/L BUN (7-18) mg/dL Creatinine (0.51-1.17) mg/dL Est Cr Clr Drug Dosing Estimated GFR (MDRD) mL/min Glucose (70-140) mg/dL Calcium (8.7-10.3) mg/dL Total Bilirubin (0.2-1.0) mg/dL AST (15-37) U/L ALT (14-63) U/L Alkaline Phosphatase (46-116) U/L Troponin I High Sens 45.300 (0-51.000) pg/mL B-Natriuretic Peptide (0-100) pg/mL Total Protein (6.4-8.2) g/dL Albumin (3.40-5.00) g/dL TSH, Ultra Sensitive 8.258 H (0.340-4.820) uIU/mL 01/19/21 Range/Units 07:05 WBC (5.00-10.00) 10^3/uL RBC (3.80-5.50) 10^6/uL Hgb (12.0-16.0) g/dL Hct (37.0-47.0) % MCV (82.0-92.0) fL MCH (27.0-31.0) pg MCHC (32.0-36.0) g/dL RDW (11.5-14.5) % Plt Count (150-400) 10^3/uL MPV (7.4-10.4) fL Immature Gran % (Auto) (0.0-5.0) % Neut % (Auto) (50.0-70.0) % Lymph % (Auto) (20.0-40.0) % Reeves % (Auto) (2.0-8.0) % Eos % (Auto) (1.0-3.0) % Baso % (Auto) (0.0-1.0) % Neut # (Auto) (2.50-7.00) 10^3/uL Lymph # (Auto) (1.00-4.00) 10^3/uL Reeves # (Auto) (0.10-0.80) 10^3/uL Eos # (Auto) (0.10-0.30) 10^3/uL Baso # (Auto) (0.00-0.10) 10^3/uL Immature Gran # (Auto) (0.00-0.50) 10^3/uL D-Dimer, Quantitative (<400) ng/mL Sodium 139 (136-145) mmol/L Potassium 3.7 (3.5-5.1) mmol/L Chloride 104 (98-107) mmol/L Carbon Dioxide 24.5 (21.0-32.0) mmol/L Anion Gap 14.2 (5-15) mmol/L BUN 19 H (7-18) mg/dL Creatinine 0.63 (0.51-1.17) mg/dL Est Cr Clr Drug Dosing 68.73 Estimated GFR (MDRD) > 60 mL/min Glucose 126 (70-140) mg/dL Calcium 9.1 (8.7-10.3) mg/dL Total Bilirubin (0.2-1.0) mg/dL AST (15-37) U/L ALT (14-63) U/L Alkaline Phosphatase (46-116) U/L Troponin I High Sens (0-51.000) pg/mL B-Natriuretic Peptide 18 (0-100) pg/mL Total Protein (6.4-8.2) g/dL Albumin (3.40-5.00) g/dL TSH, Ultra Sensitive (0.340-4.820) uIU/mL Med Orders - Current: Current Medications Acetaminophen (Acetaminophen 325 Mg Tab) 650 mg PO Q4H PRN PRN Reason: Pain (Mild 1-3)/fever Sodium Chloride (Normal Saline) 1,000 mls @ 75 mls/hr IV ASDIRECTED [facility] Last Admin: 01/19/21 03:13 Dose: 75 mls/hr Documented by: Diltiazem HCl 125 mg/ Sodium (Chloride) 125 mls @ 5 mls/hr IV TITRATE [facility] Last Admin: 01/19/21 05:17 Dose: 5 mg/hr, 5 mls/hr Documented by: Ondansetron HCl (Ondansetron 4 Mg Tab.Dis) 4 mg PO Q4H PRN PRN Reason: nausea, able to take PO Sodium Chloride (Sodium Chloride 0.9% 10 Ml Syringe) 10 ml FLUSH Q8HR PRN PRN Reason: keep vein open Last Admin: 01/19/21 02:40 Dose: 10 ml Documented by: Discontinued Medications Amiodarone HCl/Dextrose (Amiodarone/Dextrose,Iso-Osmotic 150 Mg/100 Ml Premix Bag) 150 mg IV .BOLUS ONE; Protocol Stop: 01/19/21 02:51 Last Admin: 01/19/21 02:58 Dose: 150 mg Documented by: Diltiazem HCl (Diltiazem 25 Mg/5 Ml Sdv) 20 mg IVPUSH ONETIME ONE Stop: 01/19/21 04:35 Last Admin: 01/19/21 04:41 Dose: 20 mg Documented by: Diltiazem HCl (Diltiazem 25 Mg/5 Ml Sdv) 25 mg IVPUSH ONETIME ONE Stop: 01/19/21 04:58 Last Admin: 01/19/21 05:18 Dose: Not Given Documented by: Sodium Chloride (Normal Saline) Confirm Administered Dose 1,000 mls @ as directed .ROUTE .STK-MED ONE Stop: 01/19/21 03:11 Last Admin: 01/19/21 03:15 Dose: Not Given Documented by: Amiodarone HCl/Dextrose 360 mg (/ Premix) 200 mls @ 33.3 mls/hr IV ASDIRECTED ELGIN; Protocol Last Admin: 01/19/21 03:13 Dose: 33.3 mls/hr Documented by: Sodium Chloride (Normal Saline) Confirm Administered Dose 100 mls @ as directed .ROUTE .STK-MED ONE Stop: 01/19/21 05:08 Last Admin: 01/19/21 05:23 Dose: Not Given Documented by: Diltiazem HCl 125 mg/ Sodium (Chloride) 125 mls @ 5 mls/hr IV ASDIRECTED ELGIN - Exam General: Reports: Alert, Oriented, Cooperative, No Acute Distress Lungs: Reports: Clear to Auscultation, Normal Respiratory Effort Cardiovascular: Reports: Regular Rate, Regular Rhythm, No Murmurs Extremities: No Pedal Edema
[2021-01-19] MEDS ORDERED: Diltiazem 120 MG Cap.CD PO ONE (11:35)
[2021-01-19 12:21] VITALS: BP 140/72; PULSE 76
== END 2021-01-19 14:00 | disposition home or self-care (01) | DRG 310 ==
LOC: KA.ED 02:11 → KA.MS 05:16 → UNDOADMIN 05:38 → KA.MS 05:38 → UNDODISIN 14:00
PROVIDERS: ADMIT Internal Medicine; ATTEND Internal Medicine
DX: I48.91 Unspecified atrial fibrillation (principal); I48.0 Paroxysmal atrial fibrillation; E03.9 Hypothyroidism, unspecified; H54.7 Unspecified visual loss; E78.00 Pure hypercholesterolemia, unspecified; M54.9 Dorsalgia, unspecified; Z85.828 Personal history of other malignant neoplasm of skin; G89.29 Other chronic pain; F32.A Depression, unspecified; Z88.2 Allergy status to sulfonamides; Z88.1 Allergy status to other antibiotic agents; Z79.890 Hormone replacement therapy; Z79.899 Other long term (current) drug therapy; Z87.440 Personal history of urinary (tract) infections; Z90.710 Acquired absence of both cervix and uterus
CPT/HCPCS: 36415; 71045; 80048; 80053; 83880; 84439; 84443; 84484; 85025; 85379; 93005; A9270-GY; J0282; J3490; J7030

== ENCOUNTER 2021-10-26 02:00 | Emergency (ER) | payer MEDICARE, OTHER ==
[2021-10-26] MEDS: Sodium Chloride 0.9% 10 ML Syringe FLUSH PRN (02:34)
[2021-10-26] MEDS: Diltiazem 120 MG Cap.CD PO ONE (02:55)
[2021-10-26 02:58] LABS: ANION GAP 16.1 mmol/L (5-15); CHLORIDE,CL 104 mmol/L (98-107); SODIUM,NA 140 mmol/L (136-145)
[2021-10-26] MEDS: Aspirin 81 MG Tab.Chew PO ONE (02:58)
[2021-10-26] MEDS: Aspirin 81 MG Tab.Chew ONE (03:00)
[2021-10-26 03:01] LABS: ESTIMATED GFR 93 mL/min (>=60)
[2021-10-26 03:14] LABS: PTT,PARTIAL THROMBOPLSTIN TIME 28.3 SEC (22.8-31.4)
[2021-10-26] MEDS: Apixaban 5 MG Tab PO ONE (03:54)
== END 2021-10-26 05:05 ==
LOC: KA.ED 02:00
DX: I48.0 Paroxysmal atrial fibrillation (principal); Z88.2 Allergy status to sulfonamides; Z79.899 Other long term (current) drug therapy; Z79.82 Long term (current) use of aspirin
CPT/HCPCS: 36415; 71045; 80053; 83735; 84443; 84484; 85025; 85610; 85730; 93005; 99285; A9270-GY; J3490

== ENCOUNTER 2022-10-05 17:59 | Emergency (ER) | payer MEDICARE, OTHER ==
[2022-10-05] MEDS: Sodium Chloride 0.9% 1,000 ML IV ONE (18:15)
[2022-10-05] MEDS: Ketorolac 30 MG/ML SDV IVPUSH ONE (18:17)
[2022-10-05] MEDS: Ketorolac 30 MG/ML SDV IM ONE (18:25)
[2022-10-05 18:33] LABS: BASOPHILS ABSOLUTE AUTO 0.08 10^3/uL (0.00-0.10); BASOPHILS PERCENT AUTO 0.6 % (0.0-1.0); EOSINOPHILS ABSOLUTE AUTO 0.41 10^3/uL (0.10-0.30); EOSINOPHILS PERCENT AUTO 3.1 % (1.0-3.0); HEMATOCRIT 43.6 % (37.0-47.0); HEMOGLOBIN 15.4 g/dL (12.0-16.0); IMMATURE GRAN ABSOLUTE AUTO 0.03 10^3/uL (0.00-0.50); IMMATURE GRAN PERCENT AUTO 0.2 % (0.0-5.0); LYMPHOCYTES ABSOLUTE AUTO 2.64 10^3/uL (1.00-4.00); LYMPHOCYTES PERCENT AUTO 20.2 % (20.0-40.0); MEAN CORPUSCULAR HEMOGLOBIN 30.8 pg (27.0-31.0); MEAN CORPUSCULAR HGB CONC 35.3 g/dL (32.0-36.0); MEAN CORPUSCULAR VOLUME 87.2 fL (82.0-92.0); MEAN PLATELET VOLUME 8.8 fL (7.4-10.4); MONOCYTES ABSOLUTE AUTO 0.93 10^3/uL (0.10-0.80); MONOCYTES PERCENT AUTO 7.1 % (2.0-8.0); NEUTROPHILS ABSOLUTE AUTO 8.99 10^3/uL (2.50-7.00); NEUTROPHILS PERCENT AUTO 68.8 % (50.0-70.0); PLATELET COUNT,PLT 330 10^3/uL (150-400); RED CELL DISTRIBUTION WIDTH 12.2 % (11.5-14.5); WHITE BLOOD CELL COUNT,WBC 13.08 10^3/uL (5.00-10.00)
[2022-10-05 18:45] LABS: APPEARANCE,URINE TURBID (CLEAR); BILIRUBIN,URINE SMALL (NEGATIVE); COLOR,URINE AMBER (YELLOW); GLUCOSE,URINE NEGATIVE (NEGATIVE); KETONES,URINE 15 mg/dL (NEGATIVE); LEUKOCYTE ESTERASE,URINE NEGATIVE (NEGATIVE); NITRITE,URINE NEGATIVE (NEGATIVE); OCCULT BLOOD,URINE LARGE (NEGATIVE); PH,URINE 5.5 (5.0-9.0); PROTEIN,URINE >=300 mg/dL (NEGATIVE)
[2022-10-05 18:46] LABS: BACTERIA,URINE FEW /HPF (NONE TO FEW); EPITHELIAL CELLS,URINE RARE /LPF; RBC,URINE >100 /HPF (0-5); WBC,URINE 0-5 /HPF (0-5)
[2022-10-05 18:49] LABS: ALBUMIN 3.61 g/dL (3.40-5.00); BILIRUBIN TOTAL 0.3 mg/dL (0.2-1.0); CALCIUM 9.3 mg/dL (8.7-10.3); CARBON DIOXIDE,CO2 22.9 mmol/L (21.0-32.0); CREATININE 0.86 mg/dL (0.51-1.17); EST CRCL DRUG DOSING (CG) 48.91 mL/min; POTASSIUM,K 3.9 mmol/L (3.5-5.1); PROTEIN TOTAL,TP 7.9 g/dL (6.4-8.2)
[2022-10-05] MEDS: Tamsulosin 0.4 MG Cap.ER PO ONE (19:31)
[2022-10-05] MEDS: Acetaminophen/HYDROcodone 325-5 MG Tab PO ONE (19:34)
== END 2022-10-05 19:50 | disposition home or self-care (01) ==
LOC: KA.ED 17:59
DX: N13.2 Hydronephrosis with renal and ureteral calculous obstruction (principal); R91.1 Solitary pulmonary nodule; I48.91 Unspecified atrial fibrillation; E78.00 Pure hypercholesterolemia, unspecified; I10 Essential (primary) hypertension; E03.9 Hypothyroidism, unspecified; E66.9 Obesity, unspecified; Z88.2 Allergy status to sulfonamides; Z88.1 Allergy status to other antibiotic agents; Z79.899 Other long term (current) drug therapy; Z79.82 Long term (current) use of aspirin; Z68.35 Body mass index [BMI] 35.0-35.9, adult
CPT/HCPCS: 74176; 80053; 81001; 85025; 96372; 96374; 99284; 99284-25; A9270-GY; J1885; J7030

== ENCOUNTER 2024-11-11 10:51 | Emergency (ER) | payer MEDICARE, OTHER ==
[2024-11-11 11:13] LABS: BASOPHILS ABSOLUTE AUTO 0.06 10^3/uL (0.00-0.10); BASOPHILS PERCENT AUTO 0.9 % (0.0-1.0); EOSINOPHILS ABSOLUTE AUTO 0.35 10^3/uL (0.10-0.30); EOSINOPHILS PERCENT AUTO 5.5 % (1.0-3.0); IMMATURE GRAN ABSOLUTE AUTO 0.01 10^3/uL (0.00-0.04); IMMATURE GRAN PERCENT AUTO 0.2 % (0.0-0.4); LYMPHOCYTES ABSOLUTE AUTO 1.95 10^3/uL (1.00-4.00); LYMPHOCYTES PERCENT AUTO 30.8 % (20.0-40.0); MEAN PLATELET VOLUME 8.6 fL (7.4-10.4); MONOCYTES ABSOLUTE AUTO 0.55 10^3/uL (0.10-0.80); MONOCYTES PERCENT AUTO 8.7 % (2.0-8.0); NEUTROPHILS ABSOLUTE AUTO 3.41 10^3/uL (2.50-7.00); NEUTROPHILS PERCENT AUTO 53.9 % (50.0-70.0); PLATELET COUNT,PLT 291 10^3/uL (150-400); RED BLOOD CELL COUNT 4.98 10^6/uL (3.80-5.50); RED CELL DISTRIBUTION WIDTH 12.7 % (11.5-14.5); WHITE BLOOD CELL COUNT,WBC 6.33 10^3/uL (5.00-10.00)
[2024-11-11 11:16] LABS: APPEARANCE,URINE CLEAR (CLEAR); GLUCOSE,URINE NEGATIVE (NEGATIVE); OCCULT BLOOD,URINE NEGATIVE (NEGATIVE)
[2024-11-11 11:24] LABS: SQUAMOUS EPITHELIAL CELLS,UR FEW /HPF (NOT SEEN)
[2024-11-11 11:29] LABS: ALANINE AMINOTRANSFERASE,ALT 28.0 U/L (14-63); ASPARTATE AMNIOTRANSFERASE,AST 26.0 U/L (15-37); BILIRUBIN TOTAL 0.5 mg/dL (0.2-1.0); BLOOD UREA NITROGEN,BUN 13.0 mg/dL (7-18); CARBON DIOXIDE,CO2 26.5 mmol/L (21.0-32.0); CHLORIDE,CL 100.0 mmol/L (98-107); CREATININE 0.85 mg/dL (0.51-1.17); EST CRCL DRUG DOSING (CG) 48.03 mL/min; ESTIMATED GFR 72.0 mL/min (>=60); GLUCOSE RANDOM 122.0 mg/dL (70-140); POTASSIUM,K 3.7 mmol/L (3.5-5.1); PROTEIN TOTAL,TP 8.0 g/dL (6.4-8.2); SODIUM,NA 140.0 mmol/L (136-145)
[2024-11-11] MEDS ORDERED: Naloxone 0.4 MG/ML SDV IVPUSH PRN (11:30)
[2024-11-11] MEDS: fentaNYL 100 MCG/2 ML SDV IVPUSH ONE ×2 (11:36→13:26)
[2024-11-11] MEDS: Sodium Chloride 0.9% 10 ML Syringe FLUSH PRN (11:37)
[2024-11-11] MEDS: Iopamidol 755 Mg/ML 100 ML Bottle IV ONE (12:54)
== END 2024-11-11 14:13 | disposition home or self-care (01) ==
LOC: KA.ED 10:51
DX: K57.30 Diverticulosis of large intestine without perforation or abscess without bleeding (principal); K59.01 Slow transit constipation; I10 Essential (primary) hypertension; E78.00 Pure hypercholesterolemia, unspecified; E03.9 Hypothyroidism, unspecified; Z86.16 Personal history of COVID-19; Z90.710 Acquired absence of both cervix and uterus; Z88.2 Allergy status to sulfonamides; Z88.8 Allergy status to other drugs, medicaments and biological substances; Z79.82 Long term (current) use of aspirin; Z79.890 Hormone replacement therapy; Z79.899 Other long term (current) drug therapy
CPT/HCPCS: 36415; 74177; 80053; 81001; 85025; 87086; 96374; 96375; 96376; 99284-25; J2765; J3010; Q9967

== ENCOUNTER 2024-11-13 14:42 | Emergency (ER) | payer MEDICARE, OTHER ==
[2024-11-13] MEDS: Acetaminophen/oxyCODONE 325-5 MG Tab PO ONE (15:29)
== END 2024-11-13 16:00 | disposition home or self-care (01) ==
LOC: KA.ED 14:42
DX: B02.9 Zoster without complications (principal); I10 Essential (primary) hypertension; E78.00 Pure hypercholesterolemia, unspecified; K21.9 Gastro-esophageal reflux disease without esophagitis; E03.9 Hypothyroidism, unspecified; Z90.710 Acquired absence of both cervix and uterus; Z88.2 Allergy status to sulfonamides; Z88.8 Allergy status to other drugs, medicaments and biological substances; Z79.82 Long term (current) use of aspirin; Z79.890 Hormone replacement therapy; Z79.899 Other long term (current) drug therapy
CPT/HCPCS: 99283; A9270-GY